=== PATIENT | female | born 1990 | race Hispanic/Latino ===

== ENCOUNTER 2025-05-26 23:59 | Day surgery (SDC) | payer BC ==
[2025-05-27 00:14] VITALS: BMI 37.0
[2025-05-27] MEDS: NIFEdipine 10 MG CAP PO SCH (00:45)
[2025-05-27] MEDS ORDERED: NIFEdipine XL 30 MG ER.TAB PO SCH (09:00)
== END 2025-05-27 03:35 | disposition home or self-care (01) ==
LOC: CSHLD/OP 23:59
PROVIDERS: ATTEND Student in an Organized Health Care Education/Training Program
DX: O14.15 Severe pre-eclampsia, complicating the puerperium (principal)
CPT/HCPCS: 99282